=== PATIENT | female | born 1990 | race Caucasian/White ===

== ENCOUNTER 2017-05-28 20:04 | Emergency (ER) | payer MEDICAID, SELFPAY ==
[2017-05-28 20:05] VITALS: BP 163/80; PULSE 69; RESP 17; TEMP 36.8; O2SAT 98; BMI 44.0
--- NOTE | 2017-05-28 20:15 | ED.VISSUMM ---
- ER Visit Summary Date of Service: 05/28/17 Chief Complaint: [Left ear pain] History of Present Illness: The patient is a 27 F [presents to the emergency department with left ear pain that started around 2 PM today. Patient states that she has had cold symptoms for about a week. Patient has had a cough but no fever and cough is been nonproductive. Patient states that she was horsing around with family member today and felt like her left ear popped. Since 2 PM she has increased discomfort with yawning and decreased hearing from the left ear. Patient denies any drainage from the ear.] Physical Examination: [HEENT-PERRLA, EOMI. Cranial nerves II through XII grossly intact. Right TM clear, left TM erythematous, dull, and difficult to visualize landmarks.. Mucous membranes moist. No adenopathy. Pharynx not erythematous, no exudates, uvula in the midline, no trismus. Cardiovascular-regular rate and rhythm without murmur or ectopy Lungs-clear to auscultation, chest wall stable without crepitus or subcu emphysema Abdomen-normoactive bowel sounds, soft, nontender, no rebound or rigidity, no peritoneal signs. Extremities-intact ?4, normal range of motion, normal pulses, atraumatic] Test Results: [None indicated] Emergency Department Course and Treatment: [And was started on amoxicillin] Treatment Plan: [Patient will be treated with amoxicillin and advised to use Claritin which is [id number] for suspected eustachian tube dysfunction.] Disposition: [Discharged to home in stable condition] Impression: [Left otitis media with eustachian tube dysfunction] This note was generated with [employer] dictation software. It may contain incorrect words, spelling, and punctuation that were not noted in review of the chart prior to signing ED Disposition - Plan for ED Patient: Chief Complaint: Ear Problem Referrals: Suzy Carmichael DO [Primary Care Provider] -
--- NOTE | 2017-05-28 20:17 | ED.DEP ---
ED Disposition - Plan for ED Patient: Chief Complaint: Ear Problem Instructions: ED Otitis Media Acute Adult Prescriptions: Amoxicillin 500 mg PO TID #30 tab Referrals: Suzy Carmichael DO [Primary Care Provider] - 5-7 Days
[2017-05-28] MEDS: AMOXICILLIN 500 MG CAPSULE PO (20:24)
[2017-05-28 20:25] VITALS: RESP 16
--- NOTE | 2017-05-28 20:26 | ED.RN ---
REVIEWED D/C INSTRUCTIONS, FOLLOW UP CARE, AND S/S THAT WOULD WARRANT A RETURN TO THE ED WITH PT. PT VERBALIZED AN UNDERSTANDING AND DENIES FURTHER QUESTIONS FOR THIS RN. PT SKIN P/W/D, RESP EVEN AND UNLABORED, PT A&O X 3, NO DISTRESS NOTED. PT AMBULATED OUT OF ED, GAIT STEADY.
== END 2017-05-28 20:28 | disposition home or self-care (01) ==
PROVIDERS: Emergency Provider Emergency Medicine
DX: H66.92 Otitis media, unspecified, left ear (principal); H69.92 Unspecified Eustachian tube disorder, left ear
CPT/HCPCS: 99283

== ENCOUNTER 2024-08-06 22:15 | Emergency (ER) | payer MEDICAID, SELFPAY ==
[2024-08-06 22:18] VITALS: BP 148/90; PULSE 97; RESP 18; TEMP 36.8; O2SAT 99; BMI 49.9
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
--- NOTE | 2024-08-06 22:39 | US_ITS ---
PROCEDURE: VENOUS DUPLEX IMAG/BRENNEN EXTREM 08/06/2024 REASON FOR EXAM: F 34 y/o TECHNIQUE: Grayscale color flow and doppler analysis of the bilateral lower extremity. FINDINGS: There is no intraluminal echogenicity to suggest the presence of a deep venous thrombosis. Appropriate respiratory variation, augmentation and venous compression is noted. US/Venous Duplex Imag/Brennen Extrem IMPRESSION: No deep venous thrombosis identified in the extremity. Reading Location: [id number]
[2024-08-06 22:43] LABS: Absolute Lymphocyte Count 3.68 X10^3/uL (0.83-4.51); Absolute Neutrophil Count 7.8 X10^3/uL (2.0-7.7); Basophil# 0.04 X10^3/uL; Basophil% 0.3 % (0-1); Eosinophil# 0.57 X10^3/uL; Eosinophils% 4.5 % (0-5); Hematocrit 35.3 % (37-47); Hemoglobin 11.2 g/dL (12.0-15.0); Lymphocyte # 3.68 X10^3/ul (0.83-4.51); Lymphocyte % 28.8 % (19-41); Mean Corp Hgb Conc 31.7 g/dL (32-36); Mean Corpuscular Hgb 23.7 pg (27.0-32.0); Mean Corpuscular Volume 74.8 fL (81-99); Mean Platelet Vol. 10.7 fl (6.2-12.0); Monocyte# 0.63 X10^3/uL; Monocyte% 4.9 % (0-10); NRBC Flagged by Analyzer 0 % (0-5); Neutrophil % 61.1 % (47-70); Platelet Count 309 K/mm3 (150-450); RBC Distribution Width CV 16.2 % (11.6-14.6); RBC Distribution Width SD 43.8 fl (35.1-43.9); Red Blood Count 4.72 M/mm3 (4.2-5.4); White Blood Count 12.8 K/mm3 (4.4-11.0)
[2024-08-06 23:14] LABS: AST(SGOT) 26 U/L (<=31); Alanine Aminotransfer ALT/SGPT 16 U/L (<=34); Albumin, Serum 3.3 g/dL (3.5-5.0); Alkaline Phosphatase 80 U/L (35-104); Anion Gap 11 (5-15); BUN 14 mg/dL (4-19); BUN/Creat Ratio 18.6 RATIO (10-20); Bilirubin, Direct < 0.08 mg/dL (0.00-0.30); Calcium,Total 9.2 mg/dL (7.6-11.0); Carbon Dioxide 24.5 mmol/L (21.0-32.0); Chloride 102 mmol/L (98-108); Creatinine, Serum 0.75 mg/dL (0.70-1.20); EST Glomerular Filtration Rate 106 (>60); Estimated Creatinine Clearance 130.33 ml/min (50-250); Globulin 3.2 g/dL (2.2-4.2); Glucose 105 mg/dL (70-99); Pro- Brain NATRIURETIC PEPTIDE < 36 pg/mL (<=450); Protein, Total 6.5 g/dL (5.9-8.4); Sodium Level 138 mmol/L (133-145); Total Bilirubin 0.19 mg/dL (0.00-1.30)
== END 2024-08-06 23:36 | disposition home or self-care (01) ==
PROVIDERS: Emergency Provider Emergency Medicine; Visit Provider Emergency Medicine
DX: R60.9 Edema, unspecified (principal); I89.0 Lymphedema, not elsewhere classified; I83.93 Asymptomatic varicose veins of bilateral lower extremities; F17.210 Nicotine dependence, cigarettes, uncomplicated
CPT/HCPCS: 80048; 80076; 83880; 85025; 93970; 99282